=== PATIENT | female | born 2000 | race Caucasian/White ===

== ENCOUNTER 2018-06-18 22:27 | Emergency (ER) | payer OTHER ==
[2018-06-18 23:04] LABS: APPEARANCE,URINE CLEAR; BILIRUBIN,URINE NEGATIVE (NEGATIVE); COLOR,URINE COLORLESS; GLUCOSE, URINE NEGATIVE (NEGATIVE); KETONES,URINE NEGATIVE (NEGATIVE); LEUKOCYTE ESTERASE,URINE SMALL (NEGATIVE); NITRITE,URINE NEGATIVE (NEGATIVE); PROTEIN,URINE NEGATIVE (NEGATIVE); URINE SPECIFIC GRAVITY 1.001; UROBILINOGEN,URINE NEGATIVE mg/dL (<2.0)
[2018-06-18 23:52] LABS: BACTERIA (WET MOUNT) 3+ BACTERIA SEEN; EPITHELIALS (WET MOUNT) 3+ EPITHELIALS SEEN; RBCS (WET MOUNT) FEW RBCS SEEN; T.VAGINALIS (WET MOUNT) NO TRICHOMONAS SEEN; WBCS (WET MOUNT) FEW WBCS SEEN; YEAST (WET MOUNT) NO YEAST SEEN
[2018-06-19] MEDS ORDERED: METRONIDAZOLE 500 MG TABLET PO ONE (00:24)
[2018-06-19] MEDS ORDERED: PHENAZOPYRIDINE HCL 100 MG TABLET PO ONE (00:24)
[2018-06-19 00:27] VITALS: BP 132/69
--- NOTE | 2018-06-19 00:29 | ER Document Report ---
ED GI/ - General Chief Complaint: Pain With Urination Stated Complaint: PAINFUL URINATION Time Seen by Provider: 06/18/18 23:26 Primary Care Provider: [facility] [Provider Group] - Follow up as needed Mode of Arrival: Ambulatory Information source: Patient Notes: 17-year-old female presents to ED for complaint of pain and burning with urination for 2 days. States she did have some vaginal spotting urgency frequency. is in the room and both deny any possibility of STD exposure. Patient denies any flank pain. She states it arora in her vaginal area with any movement. She states she has a white vaginal discharge but is not anything unusual. She is alert and oriented respirations regular and unlabored speaking in full sentences walking with a even steady gait. TRAVEL OUTSIDE OF THE [place] IN LAST 30 DAYS: No - HPI Patient complains to provider of: Vaginal discharge - White, Other Onset: Other - Friday Timing/Duration: Gradual, Worse Quality of pain: Burning Severity at maximum: Moderate Severity in ED: Moderate Pain Level: 4 Location: Vaginal Vaginal bleeding (Compared to normal period): Spotting Associated symptoms: Dysuria, Urinary frequency, Urinary urgency, Vaginal discharge - Right Exacerbated by: Other - Urination Relieved by: Denies Similar symptoms previously: No Recently seen / treated by doctor: No - Related Data Allergies/Adverse Reactions: No Known Allergies Allergy (Unverified 06/18/18 22:47) Past Medical History - General Information source: Patient - Social History Smoking Status: Never Smoker Chew tobacco use (# tins/day): No Frequency of alcohol use: None Drug Abuse: None Lives with: Family Family History: Reviewed & Not Pertinent Patient has suicidal ideation: No Patient has homicidal ideation: No - Past Medical History Cardiac Medical History: Reports: None Pulmonary Medical History: Reports: None EENT Medical History: Reports: None Neurological Medical History: Reports: None Endocrine Medical History: Reports: None Renal/ Medical History: Reports: None Malignancy Medical History: Reports: None GI Medical History: Reports: None Musculoskeletal Medical History: Reports Hx Musculoskeletal Trauma - Dislocated left elbow Skin Medical History: Reports None Psychiatric Medical History: Reports: None Traumatic Medical History: Reports: None Infectious Medical History: Reports: None Past Surgical History: Reports: Hx Orthopedic Surgery - left elbow Review of Systems - Review of Systems Constitutional: No symptoms reported EENT: No symptoms reported Cardiovascular: No symptoms reported Respiratory: No symptoms reported Gastrointestinal: No symptoms reported Genitourinary: Burning, Dysuria, Frequency, Urgency Female Genitourinary: Vaginal discharge - white Musculoskeletal: No symptoms reported Skin: No symptoms reported Hematologic/Lymphatic: No symptoms reported Neurological/Psychological: No symptoms reported Physical Exam - Vital signs Vitals: Temp Pulse Resp BP Pulse Ox 98.7 F 87 17 127/83 H 98 06/18/18 22:47 06/18/18 22:47 06/18/18 22:47 06/18/18 22:47 06/18/18 22:47 Interpretation: Normal - General General appearance: Appears well, Alert - HEENT Head: Normocephalic, Atraumatic Eyes: Normal Pupils: PERRL - Respiratory Respiratory status: No respiratory distress Chest status: Nontender Breath sounds: Normal Chest palpation: Normal - Cardiovascular Rhythm: Regular Heart sounds: Normal auscultation Murmur: No - Abdominal Inspection: Normal Distension: No distension Bowel sounds: Normal Tenderness: Nontender Organomegaly: No organomegaly - Genitourinary Notes: Patient self swab for GC chlamydia and wet mount. He stated there was no redness or irritation and did not want a pelvic. She stated she knew she did not have any STDs. - Back Back: Normal, Nontender - Extremities General upper extremity: Normal inspection, Nontender, Normal color, Normal ROM, Normal temperature General lower extremity: Normal inspection, Nontender, Normal color, Normal ROM, Normal temperature, Normal weight bearing. No: Marshall's sign - Neurological Neuro grossly intact: Yes Cognition: Normal Orientation: AAOx4 [place] Coma Scale Eye Opening: Spontaneous [place] Coma Scale Verbal: Oriented [place] Coma Scale Motor: Obeys Commands [place] Coma Scale Total: 15 Speech: Normal Motor strength normal: LUE, RUE, LLE, RLE Sensory: Normal - Psychological Associated symptoms: Normal affect, Normal mood - Skin Skin Temperature: Warm Skin Moisture: Dry Skin Color: Normal Course - Re-evaluation Re-evalutation: 06/19/18 01:20 Lab results discussed with patient and written report of labs given to patient. Patient was treated with Flagyl and Pyridium for her symptoms. Patient was instructed that she needed to take the Flagyl twice a day for a week. Patient stated she did not want Rocephin or azithromycin for the GC and Chlamydia test as she did not think it would be positive. She stated she would call tomorrow for the results and if they are positive she will come back and get treatment. Patient was discharged home with a dose of Pyridium and Flagyl. was at bedside and very supportive. - Vital Signs Vital signs: Temp Pulse Resp BP Pulse Ox 98.3 F 89 16 132/69 H 100 06/19/18 00:26 06/19/18 00:26 06/19/18 00:26 06/19/18 00:26 06/19/18 00:26 - Laboratory Laboratory results interpreted by me: 06/18/18 22:32 Urine Blood SMALL H Ur Leukocyte Esterase SMALL H Discharge - Discharge Clinical Impression: Bacterial vaginosis, Painful urination Condition: Stable Disposition: HOME, SELF-CARE Instructions: Family Physicians / Practices Additional Instructions: VAGINOSIS, BACTERIAL: Your exam shows you have bacterial vaginosis. This condition is due to an overgrowth of bacteria in the vagina. Symptoms may include vaginal itching or pain, a smelly discharge, and sometimes burning with urination. Normally this is not transmitted by sexual contact. Vaginosis can be treated with oral or topical antibiotics. Metronidazole (Flagyl) pills are usually effective. Topical vaginal creams include Cleocin and Metro-Gel. You should avoid sexual contact until your symptoms are all better. Call the doctor if you develop pelvic pain, fever, or problems with urination, or if you don't improve as expected. METRONIDAZOLE: Metronidazole (Flagyl) has been prescribed. This medication is used to kill a type of bacteria called anaerobes, and protozoan parasites such as trichomonas and Giardia. Flagyl often causes a metallic taste in the mouth and mild nausea. Do not use alcohol in any form with Flagyl (including alcohol in medication elixirs). Flagyl interacts with alcohol to cause flushing, palpitations, headache, stomach cramps, and vomiting. Do not use Flagyl if you are taking Antabuse (disulfiram). Call the doctor at once if you develop rash, shortness of breath, itching, or lightheadedness. URINARY ANESTHETIC AGENT: You have been given a medication (Pyridium) for urinary tract discomfort. This medicine numbs the lining of the bladder and urethra, resulting in less pain, burning, and urgency. You may take it as needed, according to instructions. When the symptoms resolve, you can stop this medication (be sure to continue any other medications the doctor has given you). This medicine turns the urine a dark orange. It may stain underwear. Occasionally, it can cause nausea. Return for evaluation if there are any unexpected effects, such as itching, hives, or shortness of breath. Please call tomorrow between 2 PM and 2 AM [phone] ask for [facility]ook for the results of your gonorrhea and Chlamydia test. I have not treated you tonight for these as you stated you do not think it is likely. The treatment for these are Rocephin IM and azithromycin. If either of these come back positive you will need to return for treatment. FOLLOW-UP CARE: If you have been referred to a physician for follow-up care, call [facility] for an appointment as you were instructed or within the next two days. If you experience worsening or a significant change in your symptoms, notify the physician immediately or return to the Emergency Department at any time for re-evaluation. Prescriptions: Metronidazole [Flagyl 500 mg Tablet] 500 mg PO BID #14 tablet Phenazopyridine HCl [Pyridium] 100 mg PO TID #15 tablet Referrals: [facility] [Provider Group] - Follow up as needed
[2018-06-19 01:16] LABS: CHLAM PCR NOT DETECTED (NOT DETECT); GON PCR NOT DETECTED (NOT DETECT)
== END 2018-06-19 00:36 | disposition home or self-care (01) ==
LOC: ER 22:27
DX: N76.0 Acute vaginitis (principal); B96.89 Other specified bacterial agents as the cause of diseases classified elsewhere; R35.0 Frequency of micturition; R30.0 Dysuria; R39.15 Urgency of urination
CPT/HCPCS: 99283; 87210; 81025; 81001; 87491; 87591; J3490

== ENCOUNTER 2018-06-27 18:41 | Emergency (ER) | payer OTHER ==
--- NOTE | 2018-06-27 20:09 | ER Document Report ---
ED Medical Screen (RME) - General Chief Complaint: Vaginal Itching Stated Complaint: PAINFUL URINATION Time Seen by Provider: 06/27/18 20:02 Mode of Arrival: Ambulatory Information source: Patient Notes: 17-year-old female presents emergency department with complaints of vaginal itching, burning with urination and right CVA pain. Patient states that she was seen in the emergency department last week and diagnosed with bacterial vaginosis. She started on Flagyl. She finished the medication and began having vaginal itching. She thinks she has a possible yeast infection. She used some [id number] Monistat with minimal relief of symptoms. She denies abdominal pain, nausea, vomiting, diarrhea, constipation, vaginal bleeding. I have greeted and performed a rapid initial assessment of this patient. A comprehensive ED assessment and evaluation of the patient, analysis of test results and completion of the medical decision making process will be conducted by additional ED providers. PHYSICAL EXAMINATION: GENERAL: Well-appearing, well-nourished and in no acute distress. HEAD: Atraumatic, normocephalic. EYES: Pupils equal round extraocular movements intact, conjunctiva are normal. ENT: Nares patent NECK: Normal range of motion LUNGS: No respiratory distress Musculoskeletal: Normal range of motion NEUROLOGICAL: Normal speech, normal gait. PSYCH: Normal mood, normal affect. SKIN: Warm, Dry, normal turgor, no rashes or lesions noted. TRAVEL OUTSIDE OF THE [place] IN LAST 30 DAYS: No - Related Data Allergies/Adverse Reactions: No Known Allergies Allergy (Verified 06/27/18 18:44) Past Medical History Renal/ Medical History: Denies: Hx Peritoneal Dialysis Musculoskeltal Medical History: Reports Hx Musculoskeletal Trauma - Dislocated left elbow Past Surgical History: Reports: Hx Orthopedic Surgery - left elbow Physical Exam - Vital signs Vitals: Temp Pulse Resp BP Pulse Ox 99.7 F 90 18 134/91 H 98 06/27/18 18:56 06/27/18 18:56 06/27/18 18:56 06/27/18 18:56 06/27/18 18:56 Course - Vital Signs Vital signs: Temp Pulse Resp BP Pulse Ox 99.7 F 90 18 134/91 H 98 06/27/18 18:56 06/27/18 18:56 06/27/18 18:56 06/27/18 18:56 06/27/18 18:56
[2018-06-27 20:45] LABS: APPEARANCE,URINE CLOUDY; BILIRUBIN,URINE NEGATIVE (NEGATIVE); COLOR,URINE YELLOW; GLUCOSE, URINE NEGATIVE (NEGATIVE); KETONES,URINE NEGATIVE (NEGATIVE); LEUKOCYTE ESTERASE,URINE MODERATE (NEGATIVE); NITRITE,URINE NEGATIVE (NEGATIVE); PROTEIN,URINE NEGATIVE (NEGATIVE); URINE SPECIFIC GRAVITY 1.015; UROBILINOGEN,URINE NEGATIVE mg/dL (<2.0)
[2018-06-27] MEDS ORDERED: FLUCONAZOLE 100 MG TABLET PO ONE (21:11)
[2018-06-27] MEDS ORDERED: IBUPROFEN 600 MG TABLET PO ONE (21:11)
[2018-06-27] MEDS ORDERED: CEPHALEXIN 500 MG CAPSULE PO ONE (21:11)
--- NOTE | 2018-06-27 21:24 | ER Document Report ---
ED GI/ - General Chief Complaint: Vaginal Itching Stated Complaint: PAINFUL URINATION Time Seen by Provider: 06/27/18 20:02 Mode of Arrival: Ambulatory Notes: Patient is a 17-year-old female who presents the emergency department with dysuria and vaginal itching. Patient reports she was seen here last week with frequent urination and dysuria, diagnosed with bacterial vaginosis. Patient reports she took all of the antibiotics as prescribed which is when the vaginal itching started. Patient reports she now has worsening of the dysuria. Denies any fevers, nausea, vomiting or diarrhea. Denies possibility of any STDs. TRAVEL OUTSIDE OF THE [place] IN LAST 30 DAYS: No - Related Data Allergies/Adverse Reactions: No Known Allergies Allergy (Verified 06/27/18 18:44) Past Medical History - General Information source: Patient - Social History Smoking Status: Never Smoker Family History: Reviewed & Not Pertinent Patient has suicidal ideation: No Patient has homicidal ideation: No Renal/ Medical History: Denies: Hx Peritoneal Dialysis Musculoskeletal Medical History: Reports Hx Musculoskeletal Trauma - Dislocated left elbow Past Surgical History: Reports: Hx Orthopedic Surgery - left elbow Review of Systems - Review of Systems Constitutional: denies: Fever EENT: No symptoms reported Cardiovascular: No symptoms reported Respiratory: No symptoms reported Gastrointestinal: No symptoms reported Genitourinary: Dysuria, Frequency. denies: Hematuria Female Genitourinary: Vaginal discharge - white Musculoskeletal: No symptoms reported Skin: No symptoms reported Hematologic/Lymphatic: No symptoms reported Neurological/Psychological: No symptoms reported Physical Exam - Vital signs Vitals: Temp Pulse Resp BP Pulse Ox 99.7 F 90 18 134/91 H 98 06/27/18 18:56 06/27/18 18:56 06/27/18 18:56 06/27/18 18:56 06/27/18 18:56 - Notes Notes: PHYSICAL EXAMINATION: GENERAL: Well-appearing, well-nourished and in no acute distress. HEAD: Atraumatic, normocephalic. EYES: Pupils equal round and reactive to light, extraocular movements intact, conjunctiva are normal. ENT: Nares patent, oropharynx clear without exudates. Moist mucous membranes. NECK: Normal range of motion, supple without lymphadenopathy LUNGS: Breath sounds clear to auscultation bilaterally and equal. No wheezes rales or rhonchi. HEART: Regular rate and rhythm without murmurs ABDOMEN: Soft, nontender, nondistended abdomen. No guarding, no rebound. No masses appreciated. Female : No CVA tenderness. Declined speculum vaginal exam. Musculoskeletal: Normal range of motion, no pitting or edema. No cyanosis. NEUROLOGICAL: Cranial nerves grossly intact. Normal speech, normal gait. Normal sensory, motor exams PSYCH: Normal mood, normal affect. SKIN: Warm, Dry, normal turgor, no rashes or lesions noted. Course - Re-evaluation Re-evalutation: Urinalysis appears infected, moderate blood noted, moderate leukocyte esterase, 114 white blood cells, 1+ bacteria. Will start patient on oral antibiotics for this and send a culture. Patient will also be given a course of Diflucan as patient describes symptoms consistent with a vaginal yeast infection after finishing course of Flagyl. Patient was offered a speculum exam, patient declined to this. - Vital Signs Vital signs: Temp Pulse Resp BP Pulse Ox 97.4 F 78 16 118/72 100 06/27/18 21:41 06/27/18 21:41 06/27/18 21:41 06/27/18 21:41 06/27/18 21:41 - Laboratory Laboratory results interpreted by me: 06/27/18 20:07 Urine Blood MODERATE H Ur Leukocyte Esterase MODERATE H Discharge - Discharge Clinical Impression: Yeast infection of the vagina Urinary tract infection Qualifiers: Urinary tract infection type: site unspecified Hematuria presence: without hematuria Qualified Code(s): N39.0 - Urinary tract infection, site not specified Condition: Stable Disposition: HOME, SELF-CARE Additional Instructions: URINARY TRACT INFECTION: Your evaluation indicates that you have a urinary tract infection. This is due to germs growing in the bladder. This is a common problem. This infection usually responds quickly to antibiotics. Your antibiotic should be taken exactly as prescribed. Drink plenty of fluids -- three to four quarts a day. Occasionally, a bladder anesthetic will be prescribed to help stop the feeling of urgency until the antibiotic has a chance to clear the infection. This may cause your urine to be dark orange. Certain urine infections require a culture. If the doctor obtained a culture, the results will be back in two days. You should call to see if a change in treatment is needed. A repeat urinalysis after you finish treatment is often recommended. The physician will let you know if further testing is required. Call the doctor if you develop fever, chills, flank pain, inability to urinate, or blood in the urine. ANTIBIOTIC THERAPY: You have been given an antibiotic prescription. It's important that you take all the medication, unless instructed otherwise by your physician. Failure to complete the entire course can result in relapse of your condition. Common side effects of antibiotics include nausea, intestinal cramping, or diarrhea. Women may develop vaginal yeast infections, and babies can get yeast (thrush) in the mouth following the use of antibiotics. Contact your physician if you develop significant side effects from this medication. Allergy to this antibiotic can result in hives, wheezing, faintness, or itching. If symptoms of allergy occur, stop the medication and call the doctor. CEPHALEXIN: The antibiotic you've been prescribed is a member of the cephalosporin class. This type of antibiotic covers a wide variety of infections, including those of the skin, lungs, and urinary tract. It's useful for staph infections. This antibiotic is slightly similar to the penicillin family. In rare cases, a person who is allergic to penicillin will also be allergic to this medication. If you have had a severe allergic reaction to penicillin, and have not taken this antibiotic since that time, notify your doctor. Antibiotics which cover many germs ("broad spectrum" antibiotics) are more likely to cause diarrhea or "yeast" infections. Women prone to vaginal yeast problems may suffer an attack after taking this antibiotic. In infants, oral thrush (white spots "stuck" on the cheek) or yeast diaper rash may result. See your doctor if these problems occur. Call at once if you develop itching, hives, shortness of breath, or lightheadedness. Vaginal Yeast Infection You have evidence of a yeast infection -- called "alexx." A vaginal yeast infection often causes itching and discharge. While not dangerous, it can be very unpleasant. A yeast infection often follows the use of powerful antibiotics. It is more likely to occur in diabetics. The treatment now is usually a single pill of Diflucan, but also an antifungal cream or suppository may be used for a few days. You do not need to avoid sexual intercourse. Recurrences are common. You can make a recurrence less likely by wearing cotton underwear and avoiding tight clothing. For mild recurrences, you can try [id number] creams or suppositories that are made specifically for yeast. If the symptoms do not resolve, you should follow up for re-examination. Sometimes treatment of the sexual partner is necessary if infections are recurrent. FOLLOW-UP CARE: If you have been referred to a physician for follow-up care, call the physicians office for an appointment as you were instructed or within the next two days. If you experience worsening or a significant change in your symptoms, notify the physician immediately or return to the Emergency Department at any time for re-evaluation. Prescriptions: Cephalexin [Cephalexin 500 MG Tablet] 1 tab PO BID #14 tablet Fluconazole [Diflucan] 150 mg PO ONCE PRN #1 tablet PRN Reason:
[2018-06-27 21:43] VITALS: BP 118/72
== END 2018-06-27 21:43 | disposition home or self-care (01) ==
LOC: ER 18:41
DX: B37.3 Candidiasis of vulva and vagina (principal); N39.0 Urinary tract infection, site not specified; R30.0 Dysuria; L29.2 Pruritus vulvae
CPT/HCPCS: 81001; 81025; 99283